=== PATIENT | male | born 1990 | race African-American/Black ===

== ENCOUNTER 2022-01-26 18:13 | Emergency (ER) | payer OTHER, SELFPAY ==
--- NOTE | ~2022-01-26 | CT_ITS ---
EXAMINATION: CT abdomen pelvis w con DATE: 01/26/2022 20:01 INDICATION: LLQ pain, worse when supine TECHNIQUE: Computed tomography (CT) of the abdomen and pelvis was performed with 100 mL Omnipaque-350 intravenous contrast. Automated exposure control and iterative reconstruction technique were employe d. The dose-length product was 1322.24 mGy-cm. COMPARISON: None. FINDINGS: Lower thorax: Mild cardiomegaly. Bibasilar dependent atelectasis Liver: Enlarged. Biliary/Gallbladder: Gallbladder is normal. No bile duct dilation. Pancreas: No mass or duct dilation. Spleen: Enlarged. Adrenals:Right adrenal adenoma. Kidneys: Multiple bilateral hypodensities that are too small to characterize but most likely represen t cysts. No suspicious mass. No hydronephrosis. Multiple bilateral nonobstructing calculi. Possible n ephrocalcinosis. GI tract: Mild distal esophageal and gastric wall edema. No small or large bowel dilation. Short segm ent mid sigmoid wall thickening with surrounding inflammatory changes. Diverticulosis. Normal appendi x. Mesentery/Peritoneum: No ascites, mass, or free air. Retroperitoneum: No mass. Pelvis: Pelvic organs are within normal limits. Soft Tissues: Soft tissues and body wall unremarkable. Bones: No acute osseous finding. IMPRESSION: Acute uncomplicated diverticulitis. Chronic/incidental findings including mild cardiomegaly, hepatome crystal, and bilateral nephrolithiasis. Reviewed, dictated and finalized at location [facility] IMPRESSION: Acute uncomplicated diverticulitis. Chronic/incidental findings including mild cardiomegaly, hepatomegaly, and bilateral nephrolithiasis.
[2022-01-26 18:24] VITALS: BP 154/86; PULSE 81; RESP 20; TEMP 36.8; O2SAT 99
[2022-01-26 18:38] LABS: Basophils Percent Auto 0.3 % (0.2-1.2); Eosinophils Absolute Auto 0.2 K/mm3 (0-0.3); Eosinophils Percent Auto 1.7 % (0-4.4); Hematocrit 42.5 % (42.0-52.0); Hemoglobin 14.2 g/dL (14.0-18.0); Immature Granulocyte Absolute 0.04 K/mm3 (0.00-0.031); Immature Granulocyte Percent A 0.4 % (0-0.5); Lymphocytes Absolute Auto 2.25 K/mm3 (0.9-3.2); Mean Corpuscular HGB Conc 33.4 g/dl (32-36); Mean Corpuscular Hemoglobin 29.9 pg (26-34); Mean Corpuscular Volume 89.5 fl (80-100); Mean Platelet Volume 11.8 fl (7.4-10.4); Monocytes Absolute Auto 0.9 K/mm3 (0.1-0.6); Monocytes Percent Auto 8.2 % (2.6-8.5); Neutrophils Absolute Auto 7.8 K/mm3 (1.3-6.7); Neutrophils Percent Auto 69.4 % (45.5-73.1); Platelet Count Result 177 k/mm3 (150-375); Red Blood Count 4.75 M/mm3 (4.6-6.20); Red Cell Distribution Width 13.2 % (11.5-14.5); White Blood Count 11.3 K/mm3 (4.5-10.0)
[2022-01-26 18:52] LABS: Alanine Aminotransferase 23 U/L (6-50); Albumin Level 4.5 g/dL (3.5-5.1); Alkaline Phosphatase 82 U/L (38-126); Anion Gap 11 mmol/L (8-16); Aspartate Amino Transferase 17 U/L (17-59); Bilirubin,Total 2.2 mg/dL (0.2-1.3); Blood Urea Nitrogen 9 mg/dL (9-20); Calcium 9.2 mg/dL (8.4-10.2); Carbon Dioxide 25 mmol/L (22-30); Chloride 101 mmol/L (98-107); Estimated CRCL calculation 97 ml/min; Estimated Glomerular Filt Rate > 60; Glucose 104 mg/dL (65-110); Lipase 28 U/L (23-300); Potassium 3.5 mmol/L (3.4-5.0); Sodium 137 mmol/L (137-145)
[2022-01-26 19:20] VITALS: BP 132/81; PULSE 73; RESP 16; O2SAT 99
[2022-01-26 19:22] LABS: Appearance Urine Clear (Clear); Bilirubin Urine Negative (Negative); Blood Urine Trace-intact (Negative); Color Urine Yellow (Yellow); Glucose Urine UA Negative (Negative); Ketones Urine Trace mg/dL (Negative); Leukocyte Esterase Ur Negative LEU/UL (Negative); Nitrate Urine Negative (Negative); Protein Urine 1+ mg/dL (Negative); pH Urine 6.5 (5.0-9.0)
[2022-01-26 19:26] LABS: Add Urine Microscopic? YES; Mucus Urine Rare /lpf; WBC Urine 0-3 /hpf
--- NOTE | 2022-01-26 19:34 | ED.ABDPAIN ---
HPI - Abdominal Pain General Chief Complaint: Abdominal Pain Stated Complaint: abd pain Time Seen by Provider: 01/26/22 19:01 History of Present Illness HPI narrative: Patient is a 31-year-old male presenting with abdominal pain. Patient states that for the last 24 hours he has had pain in his left lower quadrant. States that coughing makes the pain worse. States that he tried to have a bowel movement but that also made the pain worse. He denies nausea or vomiting. States he has been able to eat normally. States that he did have some pain radiating into his testicle last night but this is resolved. Denies testicular erythema or edema. Denies hematochezia or melena. No fevers or chills, chest pain, cough, shortness of breath, dysuria, hematuria. States he has had kidney stones in the past but this feels different. Related Data Allergies Allergy/AdvReac Type Severity Reaction Status Date / Time shellfish derived Allergy Swelling Verified 01/26/22 19:20 of Lip/Tongue/Throat Review of Systems Review of Systems: All systems reviewed & are unremarkable except as noted in HPI and below Exam Narrative: GENERAL: Well-appearing, well-nourished, and in no acute distress. HEAD: Normocephalic, atraumatic. EYES: PERRLA and EOMI. ENT: Nares clear, no rhinorrhea or epistaxis. Mucous membranes moist. NECK: Supple. CHEST: Clear to auscultation. No respiratory distress. HEART: Regular rate and rhythm. No murmur heard. Normal peripheral pulses. ABDOMEN: Soft, tender in left lower quadrant, nondistended, normal active bowel sounds. EXTREMITIES: Normal range of motion. No edema. SKIN: Warm, dry, no rash. NEURO: No focal deficits. Alert and oriented x3. PSYCH: Normal mood and affect. Course Vital Signs Vital signs: Vital Signs Temperature 98.2 F 01/26/22 18:24 Pulse Rate 81 01/26/22 18:24 Respiratory Rate 20 01/26/22 18:24 Blood Pressure 154/86 H 01/26/22 18:24 Pulse Oximetry 99 01/26/22 18:24 Oxygen Delivery Room Air 01/26/22 18:24 Temperature 98.2 F 01/26/22 18:24 Pulse Rate 65 01/26/22 20:56 Respiratory Rate 14 01/26/22 20:56 Blood Pressure 131/74 01/26/22 20:56 Pulse Oximetry 100 01/26/22 20:56 Oxygen Delivery Room Air 01/26/22 18:24 MDM - Abdominal Pain MDM Narrative Medical decision making narrative: Patient is a 31-year-old male presenting with left lower quadrant pain. Vitals within normal limits. Exam remarkable for the above. He is rather tender in the left lower quadrant. Blood work with mild leukocytosis. CT abdomen pelvis with acute uncomplicated diverticulitis. Patient given a dose of Augmentin. We will send him home with 5 days with Augmentin and 7 pills of oxycodone for pain control. Advised that he use Tylenol and ibuprofen and only use the oxycodone for severe breakthrough pain. Advised that he follow-up with primary care. Appropriate return precautions given. Patient voiced understanding and is agreeable with plan. Discharged in stable condition. Lab Data 01/26/22 18:32 01/26/22 18:32 Labs: Lab Results 01/26/22 01/26/22 01/26/22 Range/Units 18:32 18:32 19:16 WBC 11.3 H (4.5-10.0) K/mm3 RBC 4.75 (4.6-6.20) M/mm3 Hgb 14.2 (14.0-18.0) g/dL Hct 42.5 (42.0-52.0) % MCV 89.5 (80-100) fl MCH 29.9 (26-34) pg MCHC 33.4 (32-36) g/dl RDW 13.2 (11.5-14.5) % Plt Count 177 (150-375) k/mm3 MPV 11.8 H (7.4-10.4) fl Immature Gran % (Auto) 0.4 (0-0.5) % Neut % (Auto) 69.4 (45.5-73.1) % Lymph % (Auto) 20.0 (18.3-44.2) % Rankin % (Auto) 8.2 (2.6-8.5) % Eos % (Auto) 1.7 (0-4.4) % Baso % (Auto) 0.3 (0.2-1.2) % Lymph # (Auto) 2.25 (0.9-3.2) K/mm3 Rankin # (Auto) 0.9 H (0.1-0.6) K/mm3 Eos # (Auto) 0.2 (0-0.3) K/mm3 Baso # (Auto) 0.0 (0.0-0.1) K/mm3 Abs Immat Gran (auto) 0.04 H (0.00-0.031) K/mm3 Absolute Neuts (auto) 7.8 H (1.3
[2022-01-26] MEDS: SODIUM CHLORIDE 0.9% IV 1,000 ML 999 ML IV CONT (19:44)
[2022-01-26] MEDS: KETOROLAC 15 MG/ML VIAL (*BKC) IV PUSH (19:45)
[2022-01-26] MEDS: AMOXICILLIN/CLAVULANATE K 875-125 MG TAB 1 TABLET PO (20:51)
[2022-01-26] MEDS: oxyCODONE HCL (*CRX) 5 MG TAB IR PO (20:51)
[2022-01-26 20:56] VITALS: BP 131/74; PULSE 65; RESP 14; O2SAT 100
== END 2022-01-26 20:57 | disposition home or self-care (01) ==
PROVIDERS: Emergency Medicine; Emergency Provider Emergency Medicine
DX: K57.92 Diverticulitis of intestine, part unspecified, without perforation or abscess without bleeding (principal)
CPT/HCPCS: 36415; 74177; 80053; 81001; 83690; 85025; 96365; 96375; 99284; A9270; J0131; J1885; J7030; Q9967